=== PATIENT | female | born 1955 | race Two or more races ===

== ENCOUNTER 2019-01-04 09:54 | Emergency (ER) | payer BC, OTHER ==
[~2019-01-04] VITALS: Ht 160 cm; Wt 114.0 kg
[~2019-01-04 09:54] MED LIST: ACIPHEX; AMIO200T4 PO; APIX5TAB PO; ASPI-903 PO; DILT120C77 PO; ESOM40CA PO; IBUP200C11 PO; NEBI20TA2 PO; NEBI5TAB9 PO; NICO-546 TRANSDERM; NITR0.4T32 SL; PANT40TA4 PO; [UNRECOGNIZED DRUG - REMARK]
[2019-01-04 10:00] VITALS: Ht 160 cm; Wt 114.0 kg
[2019-01-04 13:45] VITALS: BP 159/68; PULSE 100; RESP 20
== END 2019-01-04 13:47 | disposition home or self-care (01) ==
LOC: E/R 09:54
DX: I10 Essential (primary) hypertension (principal); J45.909 Unspecified asthma, uncomplicated; F17.210 Nicotine dependence, cigarettes, uncomplicated; Z79.82 Long term (current) use of aspirin
CPT/HCPCS: 36415; 71045; 80048; 84443; 84484; 85025; 93005

== ENCOUNTER 2019-01-05 03:24 | Inpatient (IN) | payer BC, OTHER ==
[~2019-01-05] VITALS: Ht 152.4 cm; Wt 116.0 kg
[~2019-01-05 03:24] MED LIST changes: -ACIPHEX; -[UNRECOGNIZED DRUG - REMARK]
[2019-01-05] MEDS ORDERED: SOD CHLORIDE 0.9% 500 ML IV STA (03:30)
[2019-01-05] MEDS ORDERED: DILTIAZEM 25 MG INJ IV ONE ×2 (03:30→05:00)
[2019-01-05] MEDS ORDERED: IOHEXOL 300MG/ML 150 ML BTL ONE (04:37)
[2019-01-05] MEDS ORDERED: SOD CHLORIDE 0.9% 100 ML ONE (04:37)
[2019-01-05] MEDS ORDERED: ONDANSETRON 4 MG INJ IV PRN ×2 (05:30→10:30)
[2019-01-05] MEDS ORDERED: ACETAMINOPHEN 325 MG TAB PO PRN ×2 (05:30→10:30)
[2019-01-05 09:00] VITALS: Ht 152.4 cm; Wt 116.0 kg
[2019-01-05] MEDS ORDERED: NACL 0.9% 3 ML SYG IV SCH (10:30)
[2019-01-05] MEDS ORDERED: DOCUSATE SODIUM 100 MG CAP PO PRN (10:30)
[2019-01-05] MEDS ORDERED: HYDROCODONE/APAP (5/325) TAB PO PRN (10:30)
[2019-01-05] MEDS ORDERED: MAGNESIUM HYDROXIDE 30ML CUP PO PRN (10:30)
[2019-01-05] MEDS: NEBIVOLOL 5 MG TAB PO SCH ×2 (11:30→14:50)
[2019-01-05 11:46] VITALS: BP 104/58; PULSE 57; RESP 19
[2019-01-05] MEDS: ENOXAPARIN 60 MG/0.6 ML SYG SC SCH ×2 (12:24→22:19)
[2019-01-05 15:52] VITALS: BP 119/64; PULSE 65; RESP 19
[2019-01-05 19:31] VITALS: BP 114/70; PULSE 53; RESP 18
[2019-01-05] MEDS ORDERED: FAMOTIDINE 20 MG TAB PO SCH (21:00)
[2019-01-05] MEDS: AMIODARONE 200 MG TAB PO SCH (21:00)
[2019-01-05 23:23] VITALS: BP 109/76; PULSE 61; RESP 18
[2019-01-06 03:20] VITALS: BP 112/71; PULSE 66; RESP 18
[2019-01-06] MEDS: PANTOPRAZOLE (EC) 40 MG TAB PO SCH (05:38)
[2019-01-06] MEDS: DILTIAZEM 25 MG INJ IV PRN (07:17)
[2019-01-06 07:20] VITALS: BP 140/82; PULSE 126; RESP 18
[2019-01-06] MEDS: ASPIRIN 81 MG TAB PO SCH (08:16)
[2019-01-06] MEDS: AMIODARONE 200 MG TAB PO SCH ×3 (08:16→21:41)
[2019-01-06] MEDS: NEBIVOLOL 5 MG TAB PO SCH (08:17)
[2019-01-06] MEDS: ENOXAPARIN 60 MG/0.6 ML SYG SC SCH ×2 (08:22→21:46)
[2019-01-06] MEDS ORDERED: DIGOXIN 500 MCG INJ IV ONE (10:00)
[2019-01-06] MEDS ORDERED: METOPROLOL 5 MG INJ IV PRN (10:00)
[2019-01-06] MEDS ORDERED: REGADENOSON 0.4 MG/5 ML SYG ONE (12:28)
[2019-01-06 13:00] VITALS: BP 125/90; PULSE 135
[2019-01-06] MEDS: DILTIAZEM (CD) 120 MG CAP PO SCH ×2 (13:41→21:00)
[2019-01-06 15:41] VITALS: BP 127/73; PULSE 145; RESP 19
[2019-01-06 19:10] VITALS: BP 109/60; PULSE 59; RESP 20
[2019-01-07 00:20] VITALS: BP 105/59; PULSE 65; RESP 20
[2019-01-07 04:05] VITALS: BP_SYST 112; BP_SYST 140; BP_DIAS 56; BP_DIAS 59; PULSE 55; PULSE 76; RESP 20
[2019-01-07] MEDS: PANTOPRAZOLE (EC) 40 MG TAB PO SCH (06:14)
[2019-01-07 07:19] VITALS: BP 119/64; PULSE 68; RESP 19
[2019-01-07] MEDS: ASPIRIN 81 MG TAB PO SCH (08:53)
[2019-01-07] MEDS: NEBIVOLOL 5 MG TAB PO SCH (08:54)
[2019-01-07] MEDS: DILTIAZEM (CD) 120 MG CAP PO SCH ×2 (08:54→21:00)
[2019-01-07] MEDS: AMIODARONE 200 MG TAB PO SCH ×3 (08:55→21:19)
[2019-01-07] MEDS: ENOXAPARIN 60 MG/0.6 ML SYG SC SCH (09:03)
[2019-01-07 11:53] VITALS: BP 103/61; PULSE 50; RESP 18
[2019-01-07 15:38] VITALS: BP 110/65; PULSE 54; RESP 19
[2019-01-07 19:31] VITALS: BP 119/63; PULSE 59; RESP 20
[2019-01-07] MEDS: APIXABAN 5 MG TABLET PO SCH (21:19)
[2019-01-08] VITALS: BP 115/60; PULSE 57; RESP 18
[2019-01-08 04:00] VITALS: BP 122/65; PULSE 52; RESP 20
[2019-01-08] MEDS: DILTIAZEM 25 MG INJ IV PRN ×2 (05:28→09:13)
[2019-01-08] MEDS: PANTOPRAZOLE (EC) 40 MG TAB PO SCH (06:40)
[2019-01-08 07:12] VITALS: BP 109/78; PULSE 110; RESP 18
[2019-01-08] MEDS: DILTIAZEM (CD) 120 MG CAP PO SCH ×4 (07:42→21:00)
[2019-01-08] MEDS: APIXABAN 5 MG TABLET PO SCH ×2 (08:11→21:25)
[2019-01-08] MEDS: ASPIRIN 81 MG TAB PO SCH (08:12)
[2019-01-08] MEDS: NEBIVOLOL 5 MG TAB PO SCH (08:12)
[2019-01-08] MEDS: AMIODARONE 200 MG TAB PO SCH ×2 (09:13→21:00)
[2019-01-08 11:07] VITALS: BP 119/66; PULSE 57; RESP 18
[2019-01-08 15:27] VITALS: BP 110/68; PULSE 59; RESP 18
[2019-01-08 19:32] VITALS: BP 99/57; PULSE 53; RESP 18
[2019-01-09] VITALS (7 sets, daily range): BP systolic 104–121; BP diastolic 55–75; PULSE 50–120; RESP 18–20
[2019-01-09] MEDS: PANTOPRAZOLE (EC) 40 MG TAB PO SCH (06:04)
[2019-01-09] MEDS: NEBIVOLOL 5 MG TAB PO SCH (08:57)
[2019-01-09] MEDS: APIXABAN 5 MG TABLET PO SCH ×2 (08:58→20:17)
[2019-01-09] MEDS: DILTIAZEM (CD) 120 MG CAP PO SCH ×2 (08:58→20:18)
[2019-01-09] MEDS: AMIODARONE 200 MG TAB PO SCH ×2 (08:58→20:18)
[2019-01-09] MEDS: DILTIAZEM 25 MG INJ IV PRN (19:06)
[2019-01-09] MEDS: NITROGLYCERIN (SL) 0.4 MG TAB SL PRN ×2 (22:47→23:33)
[2019-01-09] MEDS: morphine 2 MG INJ IV PRN (22:49)
[2019-01-10] VITALS: BP 102/55; PULSE 56; RESP 18
[2019-01-10] MEDS ORDERED: ALPRAZOLAM 0.25 MG TAB PO ONE (03:30)
[2019-01-10 03:56] VITALS: BP 92/51; PULSE 58; RESP 18
[2019-01-10] MEDS: PANTOPRAZOLE (EC) 40 MG TAB PO SCH ×2 (05:42→09:01)
[2019-01-10 07:27] VITALS: BP 116/82; PULSE 61; RESP 18
[2019-01-10] MEDS: AMIODARONE 200 MG TAB PO SCH ×2 (08:55→21:00)
[2019-01-10] MEDS: DILTIAZEM (CD) 120 MG CAP PO SCH ×2 (08:56→21:00)
[2019-01-10] MEDS: APIXABAN 5 MG TABLET PO SCH ×2 (08:56→21:29)
[2019-01-10] MEDS: NEBIVOLOL 5 MG TAB PO SCH (08:56)
[2019-01-10 11:12] VITALS: BP 120/80; PULSE 57; RESP 18
[2019-01-10 15:18] VITALS: BP 127/72; PULSE 57; RESP 18
[2019-01-10] MEDS: NICOTINE (21 MG/24 HR) PATCH TRANSDERM SCH (16:12)
[2019-01-10] MEDS ORDERED: IBUPROFEN 600 MG TAB NGT SCH (18:00)
[2019-01-10 20:00] VITALS: BP 116/75; PULSE 57; RESP 18
[2019-01-10] MEDS: morphine 2 MG INJ IV PRN (21:30)
[2019-01-11] VITALS: BP 109/55; PULSE 64; RESP 18
[2019-01-11 04:00] VITALS: BP 105/62; PULSE 65; RESP 19
[2019-01-11] MEDS: PANTOPRAZOLE (EC) 40 MG TAB PO SCH (06:04)
[2019-01-11 07:54] VITALS: BP 116/67; PULSE 59; RESP 20
[2019-01-11] MEDS: APIXABAN 5 MG TABLET PO SCH ×2 (08:36→20:41)
[2019-01-11] MEDS: DILTIAZEM (CD) 120 MG CAP PO SCH ×2 (08:37→20:41)
[2019-01-11] MEDS: AMIODARONE 200 MG TAB PO SCH ×2 (08:37→20:41)
[2019-01-11] MEDS: NICOTINE (21 MG/24 HR) PATCH TRANSDERM SCH (08:38)
[2019-01-11] MEDS: NEBIVOLOL 5 MG TAB PO SCH (08:38)
[2019-01-11 11:22] VITALS: BP 112/67; PULSE 58; RESP 20
[2019-01-11 15:23] VITALS: BP 108/65; PULSE 54; RESP 20
[2019-01-11 19:56] VITALS: BP 121/83; PULSE 132; RESP 20
[2019-01-11] MEDS ORDERED: PANTOPRAZOLE (EC) 40 MG TAB PO SCH (21:00)
== END 2019-01-11 21:01 | disposition home or self-care (01) | DRG 309 ==
LOC: E/R 03:24 → 6WM 05:19
PROVIDERS: ADMIT Internal Medicine; ATTEND Internal Medicine
DX: I48.0 Paroxysmal atrial fibrillation (principal); Z68.42 Body mass index [BMI] 45.0-49.9, adult; I10 Essential (primary) hypertension; J45.909 Unspecified asthma, uncomplicated; F17.210 Nicotine dependence, cigarettes, uncomplicated; K21.9 Gastro-esophageal reflux disease without esophagitis; E66.01 Morbid (severe) obesity due to excess calories; D72.829 Elevated white blood cell count, unspecified; R79.89 Other specified abnormal findings of blood chemistry; R13.10 Dysphagia, unspecified; F41.9 Anxiety disorder, unspecified; Z79.82 Long term (current) use of aspirin; Z88.0 Allergy status to penicillin
CPT/HCPCS: 36415; 71045; 71275; 78452; 80048; 80053; 80061; 82550; 82553; 83036; 83880; 84443; 84484; 85025; 85378; 93005; 93017; 93306; 96374; A9500; A9505; J2270; J2785; J7040; Q9967